=== PATIENT | female | born 1950 | race Caucasian/White ===

== ENCOUNTER → 2024-01-15 | Outpatient (CLI) | payer MEDICARE, SELFPAY ==
--- NOTE | 2024-01-15 16:07 | XR_ITS ---
EXAMINATION: Cervical spine, 5 views Technique: Cervical spine AP, AP odontoid, lateral, bilateral obliques, 5 views Exam date and time: January 15, 2024 1613 hours INDICATIONS: Neck pain months. FINDINGS: Marked interval anterolisthesis C3 on C4, measuring 5 mm compared to 1 mm on September 06, 2018 Advanced degenerative disc disease C3-C4, C4-C5, C5-C6, C6-C7 No cervical fracture Intact odontoid Diffuse [id number] bilateral neural foraminal stenosis IMPRESSION: Advanced degenerative disc disease C3-C4, C4-C5, C5-C6, C6-C7 Significant acquired spinal stenosis C3-C4, secondary to anterolisthesis C3 on C4 measuring 5 mm Recommend MRI cervical spine follow-up to exclude cervical cord compression at the C3-C4 level
== END | disposition home or self-care (01) ==
PROVIDERS: PCP Family Medicine; Referring Provider Family Medicine; Visit Provider Family Medicine
DX: M50.31 Other cervical disc degeneration, high cervical region (principal); M48.02 Spinal stenosis, cervical region
CPT/HCPCS: 72050

== ENCOUNTER → 2024-03-28 | Outpatient (CLI) | payer MEDICARE, SELFPAY ==
--- NOTE | 2024-03-28 15:17 | XR_ITS ---
Examination: Wrist, right 3 views bilateral wrists 6 views Technique: Right and left wrist AP oblique lateral total 6 views Date and time of exam: April 11, 2024 1525 hours INDICATIONS: Bilateral wrists numbness one year FINDINGS: Severe osteopenia No acute fracture No opaque foreign bodies Left osteoarthritis first carpometacarpal joint Partially absent trapezium right wrist IMPRESSION: No acute fracture Significant osteoarthritis left first carpometacarpal joint
--- NOTE | 2024-03-28 15:18 | XR_ITS ---
Examination: Bilateral hands, 6 views. Technique: AP, Oblique, Lateral each hand total 6 views Date and time of exam: March 28, 2024 1525 hours INDICATIONS: Bilateral hand numbness one year Findings: Severe osteopenia Significant osteoarthritis interphalangeal joints bilaterally Fusions proximal interphalangeal joints right fourth and fifth digits No fractures No opaque foreign bodies IMPRESSION: Significant osteoarthritis interphalangeal joints Fusions proximal interphalangeal joints right fourth and fifth digits
--- NOTE | 2024-03-28 15:20 | XR_ITS ---
EXAMINATION: Cervical spine, 5 views Technique: Cervical spine AP, AP odontoid, lateral, standing lateral flexion standing lateral extension, 5 views Exam date and time: March 28, 2024 1540 hours INDICATIONS: Neck pain one week FINDINGS: Cervical fusion C4-C5 Grade 1 anterolisthesis 5 mm C3 on C4 in both flexion and extension Advanced degenerative disc disease C5-C6 C6-C7 Chronic wedging C6 No acute cervical fracture IMPRESSION: Advanced degenerative disc disease C5-C6, C6-C7 Grade 1 anterolisthesis, 5 mm, C3 on C4 Suggest MRI cervical spine without contrast follow-up to assess for spinal stenosis at the C3-C4 level
== END | disposition home or self-care (01) ==
LOC: SDIM 15:03
PROVIDERS: Visit Provider Orthopaedic Surgery Orthopaedic Surgery of the Spine
DX: M19.032 Primary osteoarthritis, left wrist (principal); M19.031 Primary osteoarthritis, right wrist; M19.042 Primary osteoarthritis, left hand; M19.041 Primary osteoarthritis, right hand; M50.322 Other cervical disc degeneration at C5-C6 level
CPT/HCPCS: 72050; 73110; 73130

== ENCOUNTER → 2024-04-09 | Outpatient (CLI) | payer MEDICARE, SELFPAY ==
--- NOTE | 2024-04-09 08:30 | XR_ITS ---
Examination: CT cervical spine without contrast 2-D sagittal reconstructions 2-D coronal reconstructions 3-D reconstructions. Exam date and time:April 09, 2024 0845 hrs. Indications: Neck pain beginning 8 months ago CTDI:vol (mGy) 12.6 DLP: (mGycm) 244 Technique: Multiple 2 mm axial sections of the cervical spine have been obtained. The coronal and sagittal reconstructions have been obtained. 3-D reconstructions have been obtained. Low dose protocols were performed. One or more of the following dose reduction techniques were used; automated exposure control, adjustment of the mA and/or KV according to patient size, use of iterative reconstruction technique. Findings: Marked abnormal retrolisthesis, 5 mm, C4 relative to C3 Fusion at the C4-C5 level Gross bone destruction involving the posterior margin of C4 and the anterior margin of the C5 vertebral body Advanced disc narrowing C3-C4, C4-C5, C5-C6 C6-C7 Impression: Abnormal examination Marked retrolisthesis C4 relative to C3 at least 5 mm Bone destruction involving the C4 and C5 vertebral bodies consider osteomyelitis Recommend MRI cervical spine follow-up pre and post intravenous contrast
== END | disposition home or self-care (01) ==
LOC: CCTX 08:12
PROVIDERS: PCP Family Medicine; Referring Provider Orthopaedic Surgery Orthopaedic Surgery of the Spine; Visit Provider Orthopaedic Surgery Orthopaedic Surgery of the Spine
DX: M89.8X8 Other specified disorders of bone, other site (principal)
CPT/HCPCS: 72125

== ENCOUNTER → 2024-10-18 | Outpatient (CLI) | payer MEDICARE, SELFPAY ==
[2024-10-18 09:35] LABS: Basophils # (Auto) 0.1 Thou/mm3 (0.0-0.2); Basophils % (Auto) 1 % (0-2.5); Eosinophils # (Auto) 0.4 Thou/mm3 (0.0-0.5); Eosinophils % (Auto) 5 % (0-10); Hematocrit 39.7 % (36.0-46.0); Hemoglobin 12.9 g/dL (12.0-16.0); Immature Granulocytes Auto 0.04 Thou/mm3 (0.00-0.00); Lymphocytes # (Auto) 1.9 Thou/mm3 (1.0-4.8); Lymphocytes % (Auto) 25 % (10-50); Mean Corpuscular HGB Conc 32.5 g/dl (31.0-37.0); Mean Corpuscular Hemoglobin 31.5 pg (25.0-35.0); Mean Corpuscular Volume 97 fL (80-100); Monocytes # (Auto) 0.7 Thou/mm3 (0.0-0.8); Monocytes % (Auto) 9 % (0-12); Neutrophils # (Auto) 4.5 Thou/mm3 (1.8-7.7); Neutrophils % (Auto) 60 % (37-80); Nucleated Red Blood Cell # 0.00 Thou/mm3 (0.00-0.00); Nucleated Red Blood Cell % 0 /100 WBC (0); Platelet Count 338 Thou/mm3 (140-440); RDW Standard Deviation 45.2 fL (36.4-46.3); Red Blood Count 4.10 Miln/mm3 (4.00-5.20); White Blood Count 7.6 Thou/mm3 (3.6-11.0)
[2024-10-18 09:38] LABS: Parathyroid Hormone Intact 37.6 pg/ml (18.5-88.0)
[2024-10-18 09:55] LABS: Glucose Estimated Average 105 mg/dL (80-131); Hemoglobin A1C 5.3 % Hgb (4.8-6.0)
[2024-10-18 09:56] LABS: Alanine Aminotransferase 14 U/L (10-49); Albumin, Serum 4.1 gm/dL (3.4-4.8); Albumin/Globulin Ratio 1.8 (1.2-2.2); Alkaline Phosphatase 101 U/L (46-116); Anion Gap 11 (7-16); Aspartate Amino Transferase 22 U/L (0-34); BUN/Creatinine Ratio 20 Ratio (12-20); Bilirubin,Total 0.5 mg/dL (0.3-1.2); Blood Urea Nitrogen 14 mg/dL (9-23); C-Reactive Protein < 0.5 mg/dL (0.0-0.9); Calcium 10.1 mg/dL (8.3-10.6); Calcium (Corrected) 10.1 mg/dL (8.5-10.1); Carbon Dioxide 28.1 mMol/L (20.0-31.0); Cardiac Risk Estimate 2.2 RATIO (3.7-5.6); Chloride 104 mMol/L (98-107); Cholesterol 174 mg/dL (132-200); Creatinine (Component) 0.7 mg/dL (0.6-1.3); Globulin 2.3 gm/dL (2.3-3.5); Glucose 85 mg/dL (74-106); HDL Cholesterol 80 mg/dL (40-60); LDL Cholesterol,Calculated 77 mg/dL (0-130); Osmolality,Calculated 284 (275-295); Phosphorous 4.0 mg/dL (2.4-5.1); Potassium 4.6 mMol/L (3.4-5.1); Sodium 143 mMol/L (136-145); Total Protein 6.4 gm/dL (5.7-8.2); Triglycerides 84 mg/dL (30-150); eGFR > 60 See Note
[2024-10-18 10:27] LABS: Vitamin D 25 Hydroxy Total 83.0 ng/mL (7.3-40.2)
[2024-10-18 11:53] LABS: Sed Rate (ESR) 16 mm/hr (0-30)
== END | disposition home or self-care (01) ==
LOC: COPL 08:15
PROVIDERS: PCP Family Medicine; Referring Provider Internal Medicine; Visit Provider Internal Medicine
DX: G56.03 Carpal tunnel syndrome, bilateral upper limbs (principal); M17.11 Unilateral primary osteoarthritis, right knee; M47.812 Spondylosis without myelopathy or radiculopathy, cervical region; M47.816 Spondylosis without myelopathy or radiculopathy, lumbar region; M81.0 Age-related osteoporosis without current pathological fracture
CPT/HCPCS: 36415; 80053; 80061; 82306; 83036; 83970; 84100; 85025; 85652; 86140